=== PATIENT | male | born 2005 | race Two or more races ===

== ENCOUNTER 2023-11-07 22:02 | Emergency (ER) | payer MEDICAID ==
[~2023-11-07] VITALS: Ht 177.8 cm; Wt 95.5 kg
[2023-11-07 22:09] VITALS: BP 119/90; PULSE 107; RESP 18; TEMP 98.6
[2023-11-07] MEDS ORDERED: HYDR-4723 PO (22:57)
[2023-11-07] MEDS: HYDROCODONE/ACETAMINOPHEN 5-325 MG TABLET PO ONE (23:01)
== END 2023-11-08 00:12 | disposition home or self-care (01) ==
LOC: EMS 22:03
DX: S62.306A Unspecified fracture of fifth metacarpal bone, right hand, initial encounter for closed fracture (principal); X58.XXXA Exposure to other specified factors, initial encounter; Y93.89 Activity, other specified; Y92.89 Other specified places as the place of occurrence of the external cause; Y99.8 Other external cause status
CPT/HCPCS: 99283